=== PATIENT | female | born 1990 | race Two or more races ===

== ENCOUNTER 2017-04-27 15:52 | Emergency (ER) | payer OTHER ==
[~2017-04-27] VITALS: Ht 172.7 cm; Wt 72.1 kg
--- NOTE | 2017-04-27 16:10 | NUR ---
NAUSEA / VOMITING SINCE 1200, NAD NOTED, VSS, RESP EVEN AND UNLABORED, PT ON MONITOR, WAITING FOR MD FLOWER.
[2017-04-27] MEDS ORDERED: FAMOTIDINE/PF INJ 20 MG/2 ML VIAL IV ONE ×2 (17:17→17:30)
[2017-04-27] MEDS ORDERED: ONDANSETRON HCL/PF 4 MG/2 ML VIAL ONE ×2 (17:17→18:13)
[2017-04-27 17:19] LABS: BASOPHILS # (AUTO) 0.1 /CMM (0.0-0.2); BASOPHILS % (AUTO) 1.1 % (0.0-2.0); EOSINOPHILS # (AUTO) 0.1 /CMM (0.0-0.7); EOSINOPHILS % (AUTO) 1.4 % (0.0-6.0); HEMATOCRIT 41 % (33-45); HEMOGLOBIN 14.1 g/dL (11.5-14.8); LYMPHOCYTES # (AUTO) 2.7 /CMM (0.8-4.8); LYMPHOCYTES % (AUTO) 37.4 % (20.0-44.0); MEAN CORPUSCULAR HEMOGLOBIN 30 PG (26.0-33.0); MEAN CORPUSCULAR HGB CONC 35 g/dl (31.0-36.0); MEAN CORPUSCULAR VOLUME 87 fL (82-100); MONOCYTES # (AUTO) 0.6 /CMM (0.1-1.30); MONOCYTES % (AUTO) 9.1 % (2.0-12.0); NEUTROPHILS # (AUTO) 3.6 /CMM (1.8-8.9); PLATELET COUNT (AUTO) 274 /CMM (150-450); RDW COEFFICIENT OF VARIATION 11.7 (11.5-15.0); RED BLOOD CELL COUNT(AUTO) 4.68 MIL/uL (4.0-5.2); WHITE BLOOD COUNT (AUTO) 7.1 K/uL (4.3-11.0)
[2017-04-27] MEDS ORDERED: ONDANSETRON HCL/PF 4 MG/2 ML VIAL IVP ONE (17:30)
[2017-04-27] MEDS ORDERED: IV NS 0.9% 1,000 ML BAG IV ONE (17:30)
[2017-04-27 17:39] LABS: CALCIUM, SERUM 9.4 mg/dL (8.5-10.1); CREATININE 0.6 mg/dL (0.6-1.3); POTASSIUM 3.5 mmol/L (3.5-5.1)
[2017-04-27 17:42] LABS: ALBUMIN 4.2 g/dL (3.4-5.0); BILIRUBIN,DIRECT 0.1 mg/dL (0.0-0.2); BILIRUBIN,TOTAL 0.5 mg/dL (0.2-1.0)
[2017-04-27] MEDS ORDERED: ACETAMINOPHEN ES 500 MG TABLET ONE (18:14)
--- NOTE | 2017-04-27 18:18 | NUR ---
PASSED PO CHALLENGE.
[2017-04-27] MEDS ORDERED: ONDANSETRON HCL/PF 4 MG/2 ML VIAL IV ONE (18:30)
[2017-04-27] MEDS ORDERED: ACETAMINOPHEN ES 500 MG TABLET PO ONE (18:30)
--- NOTE | 2017-04-27 19:00 | NUR ---
Patient discharged to home in stable condition. Written and verbal after care instructions given. Patient verbalizes understanding of instruction.IV removed. Catheter intact and site benign. Pressure and 4x4 applied to site. No bleeding noted. Prescription given.
[2017-04-27 19:01] VITALS: BP 127/80
== END 2017-04-27 19:01 | disposition home or self-care (01) ==
LOC: ER 15:54
DX: R11.2 Nausea with vomiting, unspecified (principal); R51 Headache; R19.7 Diarrhea, unspecified; R10.13 Epigastric pain
CPT/HCPCS: 36415; 80048-TC; 80076-TC; 83690-TC; 85025-TC; A4606; J2405; J3490; J7030; Z7610